=== PATIENT | female | born 1960 | race Caucasian/White ===

== ENCOUNTER 2021-02-09 14:29 | Outpatient (CLI) | payer OTHER ==
[2021-02-09] MEDS ORDERED: LEVO125T PO (15:17)
[2021-02-09] MEDS ORDERED: ATOR10TA9 PO (15:17)
[2021-02-09] MEDS ORDERED: LOSA100T14 PO (15:17)
[2021-02-09] MEDS ORDERED: ESTR-99 PO (15:17)
[2021-02-09] MEDS ORDERED: CITA40TA5 PO (15:17)
[2021-02-09] MEDS ORDERED: HYDROCHLOROTH12.5 MG PO (15:17)
[2021-02-09 16:18] LABS: CHLORIDE 106 mmol/L (98-107)
[2021-02-09 16:41] LABS: ALANINE AMINOTRANSFERASE 21 U/L (12-78); ALBUMIN 4.2 g/dL (3.4-5.0); ALKALINE PHOSPHATASE 83 U/L (45-117); ANION GAP 6 mmol/L (5-15); BILIRUBIN,TOTAL 0.5 mg/dL (0.2-1.0); CALCIUM 9.3 mg/dL (8.5-10.1); CREATININE 0.77 mg/dL (0.55-1.02); TOTAL PROTEIN 7.5 g/dL (6.4-8.2)
== END 2021-02-09 23:59 | disposition home or self-care (01) ==
LOC: STAR 14:29
PROVIDERS: ATTEND Otolaryngology
DX: Z01.818 Encounter for other preprocedural examination (principal); J39.2 Other diseases of pharynx; K13.70 Unspecified lesions of oral mucosa
CPT/HCPCS: 36415; 80053

== ENCOUNTER 2021-02-15 08:17 | Day surgery (SDC) | payer OTHER ==
[~2021-02-15] VITALS: Ht 157.5 cm; Wt 70.4 kg
[~2021-02-15 08:17] MED LIST: ATOR10TA9 PO; CITA40TA5 PO; ESTR-99 PO; HYDROCHLOROTH12.5 MG PO; LEVO125T PO; LOSA100T14 PO; SILVER NITRATE STICK TP ONE
[2021-02-15] MEDS ORDERED: MIDAZOLAM 1 MG/ML, 2ML ONE (08:24)
[2021-02-15] MEDS ORDERED: FENTANYL PF 250 MCG/5ML ONE (08:25)
[2021-02-15] MEDS ORDERED: LACTATED RINGERS 1,000 ML IV SCH (09:30)
[2021-02-15] MEDS ORDERED: CHLORHEXIDINE 15 ML UDC PO ONE (09:30)
[2021-02-15 09:44] VITALS: BP 135/88
[2021-02-15] MEDS ORDERED: LIDOCAINE/PF 1%, 30ML ONE (10:02)
[2021-02-15] MEDS ORDERED: EPINEPHRINE 1 MG/ML, 1ML ONE (10:03)
[2021-02-15] MEDS ORDERED: ACET325T14 PO (10:20)
[2021-02-15] MEDS ORDERED: IBUP-1223 PO (10:20)
[2021-02-15] MEDS ORDERED: OXYC5TAB2 PO ×2 (10:20→10:23)
[2021-02-15] MEDS ORDERED: SENN-99 PO (10:20)
[2021-02-15] MEDS ORDERED: PROPOFOL 10 MG/ML, 20ML ONE (10:29)
[2021-02-15] MEDS ORDERED: ROCURONIUM 10 MG/ML,10ML ONE (10:29)
[2021-02-15] MEDS ORDERED: GLYCOPYRROLATE 0.2MG/1ML, 5ML ONE (10:29)
[2021-02-15] MEDS ORDERED: DEXAMETHASONE 4 MG/ML, 5ML ONE (10:29)
[2021-02-15] MEDS ORDERED: SUCCINYLCHOLINE 20 MG/ML, 10ML ONE (10:29)
[2021-02-15] MEDS ORDERED: NEOSTIGMINE 1 MG/ML, 10ML ONE (10:29)
[2021-02-15] MEDS ORDERED: ONDANSETRON 2MG/ML, 2ML ONE (10:29)
[2021-02-15] MEDS ORDERED: METOCLOPRAMIDE 5 MG/ML, 2ML IVPush PRN (11:00)
[2021-02-15] MEDS ORDERED: MEPERIDINE/PF 25MG/0.5ML IVPush PRN (11:00)
[2021-02-15] MEDS ORDERED: METOPROLOL 1 MG/ML, 5ML IV PRN (11:00)
[2021-02-15] MEDS ORDERED: HALOPERIDOL 5 MG/ML IV PRN (11:00)
[2021-02-15] MEDS ORDERED: PROMETHAZINE 25 MG/ML, 1ML IVPush PRN (11:00)
[2021-02-15] MEDS ORDERED: OXYcodone 5 MG/5 ML ORAL.SOL UDC PO PRN (11:00)
[2021-02-15] MEDS ORDERED: ONDANSETRON 2MG/ML, 2ML IVPush PRN (11:00)
[2021-02-15] MEDS ORDERED: LABETALOL 5MG/ML, 20ML IV PRN (11:00)
[2021-02-15] MEDS ORDERED: EPHEDRINE 50 MG/ML, 1ML IVPush PRN (11:00)
[2021-02-15] MEDS ORDERED: hydrALAzine 20 MG/ML, 1ML IV PRN (11:00)
[2021-02-15] MEDS ORDERED: ALBUTEROL/IPRATROPIUM 2.5MG/0.5MG, 3 ML NPPB PRN (11:00)
[2021-02-15] MEDS ORDERED: ACETAMINOPHEN 325 MG TABLET PO PRN (11:00)
[2021-02-15] MEDS ORDERED: FENTANYL PF 100 MCG/2ML IV PRN (11:00)
[2021-02-15] MEDS ORDERED: DIAZEPAM 5 MG/ML, 2ML IVPush PRN (11:00)
[2021-02-15] MEDS ORDERED: KETOROLAC 30 MG/1 ML IV PRN (11:00)
[2021-02-15] MEDS ORDERED: DIPHENHYDRAMINE 50 MG/ML, 1ML IVPush PRN (11:00)
[2021-02-15] MEDS ORDERED: HYDROmorphone 1 MG/ML, 1ML INJ IVPush PRN (11:00)
[2021-02-15] MEDS ORDERED: OXYcodone 5 MG/5 ML ORAL.SOL UDC ONE (12:25)
== END 2021-02-15 13:50 | disposition home or self-care (01) ==
LOC: OUT 08:17
PROVIDERS: ATTEND Otolaryngology
DX: J39.2 Other diseases of pharynx (principal); K13.70 Unspecified lesions of oral mucosa; L57.0 Actinic keratosis; I10 Essential (primary) hypertension; E78.5 Hyperlipidemia, unspecified; E03.9 Hypothyroidism, unspecified; G40.909 Epilepsy, unspecified, not intractable, without status epilepticus; F32.9 Major depressive disorder, single episode, unspecified; Z88.0 Allergy status to penicillin
CPT/HCPCS: 42104; 42808; 88305; J0171; J2250; J3010; J7120; J1100; J2405; J2704; J2710; J0330